=== PATIENT | male | born 1955 | race Caucasian/White ===

== ENCOUNTER 2017-07-24 06:38 | Day surgery (SDC) | payer MEDICARE ==
--- NOTE | 2017-06-26 07:01 | HP ---
HISTORY AND PHYSICAL: DATE OF SURGERY: 07/24/17 DATE OF H AND P: 06/25/17 SURGEON: Dr. Deya Noel.* (DICTATED BY MILENA SAMSON) PROCEDURE: Right index finger incision and drainage, removal of foreign body. CHIEF COMPLAINT: Foreign body in right index finger. HISTORY OF PRESENT ILLNESS: Gil Rdz is a very pleasant 61-year-old male referred by Dr. Middleton for triggering of his left middle finger. He also complains of a palpable mass in the dorsal aspect of his right index finger that has been present for many years. He wants an MRI of his knee and he noted pain in his finger and he had an x-ray that showed a metallic foreign body in his right index finger. He would like to have this removed as he is concerned with the need to have MRIs in the future as he has a history of throat cancer. He denies any history of problems with anesthesia in the past. He also denies any history of DVT or PE. PAST MEDICAL HISTORY: Includes throat cancer in 2012, spontaneous pneumothorax most recently in 2013, migraines, GERD, hypertension, dyslipidemia, hypothyroidism, and brachial plexopathy. PAST SURGICAL HISTORY: Mass removal from neck, bilateral total knee arthroplasty, bilateral carpal tunnel release, pleurodesis, tonsillectomy, port placement. MEDICATIONS: 1. Montelukast 10 mg. 2. Topiramate 100 mg. 3. Omeprazole 40 mg. 4. Pentoxifylline ER 400 mg. 5. Vitamin D daily. 6. Naproxen 220 mg 1 to 2 times p.r.n. 7. Amitriptyline 20 mg at bedtime. 8. Lisinopril 20 mg. 9. Atorvastatin 40 mg. 10. Baby aspirin daily. 11. Levothyroxine 50 mcg. 12. Loratadine. 13. Fiber. 14. Multivitamin. 15. PreserVision AREDS. 16. Biotene mouthwash twice daily. ALLERGIES: No known drug allergies. He does have sensitivity to adhesives. FAMILY MEDICAL HISTORY: Father with dementia and mother with hypertension and history of sepsis. SOCIAL HISTORY: He denies any tobacco use. He does rarely drink alcohol and he denies any illicit drug use, marijuana or otherwise. He also endorses regular exercise. 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 REVIEW OF SYSTEMS: Positive for blurring, double vision, cough, has chronic weakness, history of fracture, chronic neck pain, fatigue, seasonal allergies, hay fever, history of thyroid disease, headaches, numbness and tingling in the right side as well as his presenting complaint as outlined in the HPI. He denies any history of problems with anesthesia or DVT or PE. He denies any history of infection with MRSA, hepatitis C or HIV. PHYSICAL EXAMINATION GENERAL: He is a well-nourished, well-developed 61-year-old male, in no acute distress. Alert and oriented. He has gross weakness of his right upper extremity. He is ambulating without a limp. VITAL SIGNS: Height 70 inches, pulse 88, blood pressure 138/88, respirations 16 , temperature 98.2. Pain level 2. HEENT: Normocephalic, atraumatic. Pupils are equally round and reactive to light and accommodation. Extraocular movements are intact. NECK: He has some palpable banding on the right side as well as a scar at a similar area. He has no palpable cervical lymph nodes. His thyroid is smooth and nontender. PULMONARY: Lungs clear to auscultation bilaterally with no wheezes, rales, or rhonchi. CARDIAC: Regular rate and rhythm with no murmurs, rubs, or gallops. No pedal edema. 2+ radial pulses bilaterally. EXTREMITIES: In his right index finger, he has an easily palpable metallic foreign body on the dorsal aspect between the PIP and DIP joints. It is tender to palpation. He has full range of motion with flexion and extension of his fingers. His skin is intact. He has 2+ radial pulse. He has decreased sensation grossly at the right hand. Left middle finger has tenderness to palpation at the A1 tran. Flexes his finger, click and locks and he lacks a bit of extension. IMPRESSION: Foreign body in the right index finger as well as left middle finger trigger finger. PLAN: Gil Rdz is scheduled to undergo right index finger incision and drainage, removal of foreign body with Dr. Deya Noel on 07/24/17. He will return to clinic in about 7 to 10 days postop for followup and suture removal. Prescription for pain management will be prescribed to the patient's pharmacy of choice on the day of operation. All questions were answered today in clinic. MILENA SAMSON [id number]/[facility] #: [id number] GIANFRANCO
[2017-07-24] MEDS ORDERED: Lidocaine 1% INJ* 10 MG/ML 30 ML SDV ONE (06:56)
[2017-07-24 07:54] VITALS: BP 123/85
--- NOTE | 2017-07-24 09:33 | OP ---
DATE OF OPERATION: 07/24/17 [facility] DATE OF : 59 SURGEON: Deya Noel MD. DIRECTOR BUSINESS INTEGRATION: MILENA Lott. ANESTHESIA: Local. PRE-OP DIAGNOSIS: Foreign body in the right index finger. POST-OP DIAGNOSIS: Foreign body in the right index finger OPERATIVE PROCEDURE: Remove foreign body, right index finger. ESTIMATED BLOOD LOSS: Zero. TOURNIQUET TIME: Five minutes. INDICATIONS FOR PROCEDURE: Gil is a 61-year-old man who has a bothersome foreign body in the dorsal aspect of his right index finger. He presents for removal. DESCRIPTION OF PROCEDURE: The patient was brought to the operating room, was given a digital block anesthetic with 10 mL of 1% of plain lidocaine. The skin of his right hand and wrist was prepped and draped in the usual sterile fashion. Tourniquet was used on the finger to exsanguinate and then a longitudinal incision was made over the palpable foreign body. The foreign body was removed easily and sent for pathology. The wound was irrigated and the skin edges were reapproximated with 4-0 nylon suture. The wound was dressed with Xeroform, 4x4, Webril, and Coban. The patient tolerated the procedure well and was brought to the recovery room in good condition. [id number]/[facility] #: [id number] MTDPravin
== END 2017-07-24 07:46 | disposition home or self-care (01) ==
LOC: OREAST 06:38
PROVIDERS: ATTEND Orthopaedic Surgery
DX: M79.5 Residual foreign body in soft tissue (principal); I10 Essential (primary) hypertension; E78.5 Hyperlipidemia, unspecified; E03.9 Hypothyroidism, unspecified; Z85.819 Personal history of malignant neoplasm of unspecified site of lip, oral cavity, and pharynx; K21.9 Gastro-esophageal reflux disease without esophagitis
CPT/HCPCS: 88300

== ENCOUNTER 2019-02-01 16:28 | Emergency (ER) | payer MEDICARE ==
--- OUTSIDE RECORDS SUMMARY | 2019-02-01 16:35 | XMS REPORT | Continuity of Care Document ---
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/2019 Migraine Zelalem Middleton MD Onset: 01/17/2019 Gastroesophageal reflux disease Zelalem Middleton MD Onset: 01/17/2019 Inactive Problems Abnormal weight loss Onset: 07/29/2018 Inactive: 07/29/2018 Costal chondritis Onset: 07/29/2018 Inactive: 07/29/2018 Social History Type Date Description Comments Sex Unknown Allergies, Adverse Reactions, Alerts Active Allergies Reaction Severity Comments Date Lyrica Depression, didn't work Moderate 12/13/2018 Medications Active Medications SIG Qnty Indications Ordering Date Provider Levothyroxine Sodium Take 1 Tablet By 90tabs Zelalem Middleton MD 10/09/2018 100mcg Mouth Every Day Tablets Lisinopril Oral; Take 1 90tabs Unknown 08/05/2018 20mg Tablets Tablet By Mouth Daily Omeprazole Oral; Take 1 90caps Unknown 06/24/[address] Capsule By Mouth Every Day Atorvastatin Calcium Oral; Take 1 90tabs Unknown 06/11/2018 40mg Tablet By Mouth Tablets Every Day Montelukast Sodium Oral; Take 1 90tabs Unknown 06/11/2018 10mg Tablet By Mouth Tablets Every Day Topiramate Oral; Take 1 90tabs Unknown 04/11/2017 100mg Tablets Tablet By Mouth Every Day Loratadine 1 daily Oral 30tabs Unknown 01/04/2017 10mg Tablets Multi-Vitamins 1 daily Oral 30tabs Unknown 01/04/2017 Tablets Aspirin Ec 1 daily Oral 30tabs Unknown 08/17/2014 81mg Tablets Pentoxifylline ER one tid Unknown 400mg Tablets ER History Medications Levothyroxine Sodium Oral; Take 1 Tablet 90tabs Unknown 10/09/2018 - 03/2019 100mcg By Mouth Every Day Tablets Immunizations CPT Code Status Date Vaccine Lot # [id number] Given 12/17/2018 Influenza Virus Vaccine, Quadrivalent, Split, Im Use 0.25ML 87501 Given 12/27/2017 Influenza Virus Vaccine, Quadrivalent, Split, Im Use 0.25ML 64488 Given 12/27/2017 Influenza Virus Vaccine, Quadrivalent, Split, Im Use 0.25ML 01236 Given 12/27/2017 Influenza Virus Vaccine, Quadrivalent, Split, Im Use 0.25ML 39740 Given 12/27/2017 Flu < 65 years 53069 Given 12/27/2017 Influenza Virus Vaccine, Quadrivalent, Split, Preservative Free 65120 Given 12/27/2017 Flumist 72758 Given 12/27/2017 Flu High Dose 45792 Given 12/27/2017 Influenza Virus Vaccine, Split, Preserv Free, Intradermal Use 29795 Given 12/05/2016 Influenza Virus Vaccine, Split, Preserv Free, Intradermal Use 71143 Given 12/05/2016 Flu High Dose 81122 Given 12/05/2016 Flumist 96195 Given 12/05/2016 Influenza Virus Vaccine, Quadrivalent, Split, Preservative Free 59320 Given 12/05/2016 Flu < 65 years 97776 Given 12/05/2016 Influenza Virus Vaccine, Quadrivalent, Split, Im Use 0.25ML 95481 Given 12/05/2016 Influenza Virus Vaccine, Quadrivalent, Split, Im Use 0.25ML 78466 Given 12/05/2016 Influenza Virus Vaccine, Quadrivalent, Split, Im Use 0.25ML 40645 Given 11/26/2015 Influenza Virus Vaccine, Quadrivalent, Split, Im Use 0.25ML 57197 Given 11/26/2015 Influenza Virus Vaccine, Quadrivalent, Split, Im Use 0.25ML 14084 Given 11/26/2015 Influenza Virus Vaccine, Quadrivalent, Split, Im Use 0.25ML 92937 Given 11/26/2015 Flu < 65 years 05792 Given 11/26/2015 Influenza Virus Vaccine, Quadrivalent, Split, Preservative Free 03537 Given 11/26/2015 Flumist 56694 Given 11/26/2015 Flu High Dose 62506 Given 11/11/2014 Flu High Dose 32573 Given 11/11/2014 Flumist 00883 Given 11/11/2014 Influenza Virus Vaccine, Quadrivalent, Split, Preservative Free 22244 Given 11/11/2014 Flu < 65 years 24746 Given 11/11/2014 Influenza Virus Vaccine, Quadrivalent, Split, Im Use 0.25ML 03756 Given 11/11/2014 Influenza Virus Vaccine, Quadrivalent, Split, Im Use 0.25ML 26110 Given 11/11/2014 Influenza Virus Vaccine, Quadrivalent, Split, Im Use 0.25ML 10043 Given 12/21/2013 Influenza Virus Vaccine, Quadrivalent, Split, Im Use 0.25ML 56386 Given 12/21/2013 Influenza Virus Vaccine, Quadrivalent, Split, Im Use 0.25ML 89760 Given 12/21/2013 Influenza Virus Vaccine, Quadrivalent, Split, Im Use 0.25ML 94283 Given 12/21/2013 Flu < 65 years 94197 Given 12/21/2013 Influenza Virus Vaccine, Quadrivalent, Split, Preservative Free 67254 Given 12/21/2013 Flumist 47794 Given 12/21/2013 Flu High Dose 73629 Given 01/14/2013 Flu High Dose 82993 Given 01/14/2013 Flumist 81483 Given 01/14/2013 Influenza Virus Vaccine, Quadrivalent, Split, Preservative Free 27571 Given 01/14/2013 Flu < 65 years 05310 Given 01/14/2013 Influenza Virus Vaccine, Quadrivalent, Split, Im Use 0.25ML 39128 Given 01/14/2013 Influenza Virus Vaccine, Quadrivalent, Split, Im Use 0.25ML 22286 Given 01/14/2013 Influenza Virus Vaccine, Quadrivalent, Split, Im Use 0.25ML 61504 Given 02/08/2012 Flu High Dose 44868 Given 02/08/2012 Flumist 64146 Given 02/08/2012 Influenza Virus Vaccine, Quadrivalent, Split, Preservative Free 65418 Given 02/08/2012 Flu < 65 years 38927 Given 02/08/2012 Influenza Virus Vaccine, Quadrivalent, Split, Im Use 0.25ML 47297 Given 02/08/2012 Influenza Virus Vaccine, Quadrivalent, Split, Im Use 0.25ML 11399 Given 02/08/2012 Influenza Virus Vaccine, Quadrivalent, Split, Im Use 0.25ML 00124 Given 03/21/2011 Tdap - Boostrix/Adacel 17910 Given 01/07/2011 Influenza Virus Vaccine, Quadrivalent, Split, Im Use 0.25ML 22776 Given 01/07/2011 Influenza Virus Vaccine, Quadrivalent, Split, Im Use 0.25ML 68723 Given 01/07/2011 Influenza Virus Vaccine, Quadrivalent, Split, Im Use 0.25ML 40636 Given 01/07/2011 Flu < 65 years 15615 Given 01/07/2011 Influenza Virus Vaccine, Quadrivalent, Split, Preservative Free 71253 Given 01/07/2011 Flumist 49512 Given 01/07/2011 Flu High Dose 70023 Given 04/09/2008 Pneumovax - for >=2years - PPSV23 Vital Signs Date Vital Result Comment 01/17/2019 1:52pm BP Systolic 122 mmHg BP Diastolic 78 mmHg Weight 155.00 lb Heart Rate 82 /min Body Temperature 99.3 F O2 % BldC Oximetry 99 % 07/29/2018 11:27am BP Systolic 126 mmHg Height 69.00 inches 5'9.00" Weight 154.00 lb Heart Rate 92 /min Body Temperature 98.2 F O2 % BldC Oximetry 97 % BMI (Body Mass Index) 22.74 kg/m2 Results Test Date Facility Test Result H/L Range Note TSH 10/17/2018 N2N/CCD Import TSH 2.01 0.34-5.60 mcIU/mL mcIU/mL Sodium 10/17/2018 N2N/CCD Import Sodium 134 mmol/L Low 135-145 mmol/L Protein, Total 10/17/2018 N2N/CCD Import Protein, Total 5.8 g/dL Low 6.4- 8.9 g/dL Potassium 10/17/2018 N2N/CCD Import Potassium 4.3 mmol/L 3.5-5.0 mmol/L Glucose 10/17/2018 N2N/CCD Import Glucose 101 mg/dL High 70-100 mg/dL Globulin 10/17/2018 N2N/CCD Import Globulin 1.6 g/dL Low 2-4 g/dL GFR Non Afr Amer 10/17/2018 N2N/CCD Import GFR Non Afr 71.0 _ >60 Amer GFR Afr Amer 10/17/2018 N2N/CCD Import GFR Afr Amer 85.9 _ >60 Creatinine 10/17/2018 N2N/CCD Import Creatinine 1.06 mg/dL 0.67-1.17 mg/dL Co2 10/17/2018 N2N/CCD Import Co2 25 mmol/L 22-32 mmol/L Chloride 10/17/2018 N2N/CCD Import Chloride 104 mmol/L 101-111 mmol/L Calcium 10/17/2018 N2N/CCD Import Calcium 9.3 mg/dL 8.6-10.3 mg/dL BUN/Creat Ratio 10/17/2018 N2N/CCD Import BUN/Creat Ratio 17.0 _ 8-20 BUN 10/17/2018 N2N/CCD Import BUN 18 mg/dL 6-24 mg/dL Bilirubin Total 10/17/2018 N2N/CCD Import Bilirubin Total 0.40 mg/dL 0.2 -1.0 mg/dL Ast 10/17/2018 N2N/CCD Import Ast 21 U/L 13-39 U/L Anion Gap 10/17/2018 N2N/CCD Import Anion Gap 5 mmol/L 2-11 mmol/L Alt 10/17/2018 N2N/CCD Import Alt 24 U/L 7-52 U/L Alk Phos 10/17/2018 N2N/CCD Import Alk Phos 49 U/L 34-104 U/L Albumin 10/17/2018 N2N/CCD Import Albumin 4.2 g/dL 3.2-5.2 g/dL A/G Ratio 10/17/2018 N2N/CCD Import A/G Ratio 2.6 _ 1-3 Procedures Date Code Description Status 01/17/2019 74637 Brief Emotional/Behav Assessment W/ Scoring Doc Per Completed Standard Inst Medical Devices Description No Information Available Encounters Type Date Location Provider Dx Diagnosis Office Visit 01/17/2019 2:00p [facility] Zelalem Middleton MD I10 Essential ( primary) hypertension K21.9 Gastro-esophageal reflux disease without esophagitis Assessments Date Code Description Provider 01/17/2019 I10 Essential (primary) hypertension Zelalem Middleton MD 01/17/2019 K21.9 Gastro-esophageal reflux disease without esophagitis Zelalem Middleton MD Plan of Treatment Future Appointment(s):07/25/2019 2:00 pm - Zelalem Middleton MD at [facility] Main2018 - Zelalem Middleton MDI10 Essential (primary) iziomgyzgotnH56.9 Gastro- esophageal reflux disease without esophagitis Functional Status Description No Information Available Mental Status Description No Information Available Referrals Description No Information Available
--- OUTSIDE RECORDS SUMMARY | 2019-02-01 16:35 | XMS REPORT | Continuity of Care Document ---
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 [phone] Problems Active Problems Provider Date Screening for malignant neoplasm of Diana Philippe PA-C Onset: 2017 colon Epigastric pain Diana Philippe PA-C Onset: 10/22/2017 Gastroesophageal reflux disease Diana Philippe PA-C Onset: 10/22/2017 Social History Type Date Description Comments Sex Unknown ETOH Use Currently consumes alcohol 16 oz/week Tobacco Use Start: Unknown Patient has never smoked Smoking Status Reviewed: 12/02/18 Patient has never smoked Allergies, Adverse Reactions, Alerts Description No Known Drug Allergies Medications Active Medications SIG Qnty Indications Ordering Date Provider Suprep Bowel Prep Kit as directed 1units Guille Reyes DO 12/03/2018 17.5-3.13-1.6GM/177ML Solution Omeprazole 1 by mouth twice 30caps Marisol Mcguire, 40mg Capsules DR a day 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 Topiramate Daily Unknown 100mg Tablets Methylphenidate HCL 1 Tablet Daily Unknown 20mg Tablets Montelukast Sodium Daily Unknown 10mg Tablets Lisinopril Yadiel Middleton MD 20mg Tablets Pentoxifylline ER Take 1 Tablet By Unknown 400mg Mouth Three Tablets ER Times Daily Atorvastatin Calcium Yadiel Middleton MD 40mg Tablets Levothyroxine Sodium Take 1 Tablet By Unknown 100mcg Mouth Every Day Tablets Aspirin 1 by mouth every Unknown 81mg Tablets DR day Fiber 2 Tabs bid Unknown Preservision Areds Unknown Levocetirizine Unknown Dihydrochloride 5mg Tablets Immunizations Description No Information Available Vital Signs Date Vital Result Comment 12/02/2018 2:48pm Height 70 inches 5'10" Weight 155.00 lb BP Systolic 125 mmHg BP Diastolic 92 mmHg Heart Rate 89 /min BMI (Body Mass Index) 22.2 kg/m2 10/22/2017 1:13pm Height 70 inches 5'10" Weight 170.00 lb BP Systolic 144 mmHg BP Diastolic 92 mmHg Heart Rate 88 /min BMI (Body Mass Index) 24.4 kg/m2 Results Description No Information Available Procedures Description No Information Available Medical Devices Description No Information Available Encounters Description No Information Available Assessments Date Code Description Provider 12/02/2018 Z12.11 Encounter for screening for malignant neoplasm of Guille Reyes DO colon 12/02/2018 K21.9 Gastro-esophageal reflux disease without Guille Reyes DO esophagitis Plan of Treatment Future Appointment(s):02/21/2019 9:45 am - Guille Reyes DO at [facility]12/02/2018 - Guille Reyes DOZ12.11 Encounter for screening for malignant neoplasm of bnclwV51.9 Gastro-esophageal reflux disease without esophagitis Functional Status Description No Information Available Mental Status Description No Information Available Referrals Description No Information Available
[2019-02-01 17:03] VITALS: BP 126/86
--- NOTE | 2019-02-01 17:37 | UC ---
Laceration HPI - HPI Summary HPI Summary: Patient is a 63-year-old male presenting with after he cut the tip of his right thumb while slicing meat around 1500. States it bled immediately and did not stop for over an hour. Patient notes numbness but states this is chronic from brachial nerve plexus damage. Denies taking blood thinner. States he is not UTD on tetanus and would like a booster today. - History Of Current Complaint Chief Complaint: UCLaceration Stated Complaint: FINGER LACERATION Hx Obtained From: Patient Pain Intensity: 0 - Allergies/Home Medications Allergies/Adverse Reactions: Allergies Allergy/AdvReac Type Severity Reaction Status Date / Time Adhesive Tape [Plastic Tape] Allergy Rash And Verified 11/28/17 10:05 Itching PLASTIC BAND AID Allergy Rash Uncoded 11/28/17 10:05 Home Medications: Home Medications Cbd Oil 10 mg PO DAILY 02/01/19 [History Confirmed 02/01/19] Vitamin E 100 unit PO DAILY 02/01/19 [History Confirmed 02/01/19] PMH/Surg Hx/FS Hx/Imm Hx - Surgical History Surgical History: Yes Surgery Procedure, Year, and Place: 1989 LEFT carpal tunnel [place]. 2002 rt carpal tunnel [facility]. 2003 +5 AVILA TOTAL KNEES [facility] - AVILA REPLACEMENT. 2010 RT BRANCHIAL CLEFT CYST [facility]. 2012 RT NECK DISSECTION [facility]. 2012 RT TONSILECTOMY [facility] [place]. 09/2013 PLEURODESIS,[facility] - PARTIAL RESECTION OF LUNG - W/ TITANIUM CUONG. POWER PORT AND THEN REMOVED PRESENTLY. 2012 FEEDING TUBE PUT IN AND REMOVED 04/01/13. dental extraction 2015 - Family History Known Family History: Positive: Non-Contributory - Social History Alcohol Use: Weekly Alcohol Amount: 2 DRINKS A WEEK Substance Use Type: None Substance Use Comment - Amount & Last Used: N Smoking Status (MU): Never Smoked Tobacco - Immunization History Most Recent Influenza Vaccination: fall 2012 Most Recent Tetanus Shot: 2003 Most Recent Pneumonia Vaccination: 2007 Review of Systems All Other Systems Reviewed And Are Negative: No Constitutional: Positive: Negative Skin: Positive: Other Respiratory: Positive: Negative Cardiovascular: Positive: Negative Gastrointestinal: Positive: Negative. Negative: Vomiting, Nausea Neurovascular: Negative: Decreased Pulses Musculoskeletal: Negative: Arthralgia, Decreased ROM, Edema Neurological: Positive: Numbness Physical Exam Triage Information Reviewed: Yes Appearance: Well-Appearing, No Pain Distress, Well-Nourished Vital Signs: Initial Vital Signs Temp 98.8 F 02/01/19 16:58 Pulse 88 02/01/19 16:58 Resp 16 02/01/19 16:58 BP 126/86 02/01/19 16:58 Pulse Ox 99 02/01/19 16:58 Vital Signs Reviewed: Yes Eyes: Positive: Conjunctiva Clear ENT: Positive: Hearing grossly normal Neck: Positive: Supple Respiratory: Positive: No respiratory distress Cardiovascular: Positive: Pulses Normal - strong radial pulses bilaterally, Brisk Capillary Refill Musculoskeletal Exam: Normal Musculoskeletal: Positive: Strength Intact, ROM Intact, No Edema Neurological: Positive: Alert Psychological: Positive: Age Appropriate Behavior Skin: Positive: Other - 1cm wide superficial avulsion of distal phalanx of R thumb involving nail. no active bleeding. Laceration Course/Dx - Course/Dx Course Of Treatment: I treated the avulsion with glue. Patient also received booster for tetanus. Instructed patient to return or go to ED if he experiences s/s of infection or excessive bleeding. Patient voiced understanding and agreed with the treatment plan. - Diagnosis Provider Diagnosis: Avulsion of skin of right thumb without complication Discharge ED - Sign-Out/Discharge Documenting (check all that apply): Patient Departure All imaging exams completed and their final reports reviewed: No Studies - Discharge Plan Condition: Stable Disposition: HOME Patient Education Materials: Diphtheria/Acellular Pertussis/Tetanus Booster Vaccine (By injection), Skin Avulsion (ED) Referrals: Yadiel Middleton MD [Primary Care Provider] - If Needed Additional Instructions: As discussed, you have a superficial skin avulsion of your thumb that was treated with skin glue. The glue will fall off on its own within a week. The skin will heal and your nail will grow out normally. Return or go to the ED if you experience excessive bleeding, redness and warmth of the thumb, drainage, severe pain, or inability to move the thumb. - Billing Disposition and Condition Condition: STABLE Disposition: Home - Attestation Statements Provider Attestation: Per institutional requirements, I have reviewed the chart, however, I was not consulted specifically or made aware of this patient by the midlevel provider. I did not personally evaluate, interact with , or disposition this patient.
[2019-02-01] MEDS ORDERED: Tetan/Diph/Pertus SYR(Tdap)* 0.5 ML SYR(BOOSTRIX) use SYR contains LATEX IM ONE (17:42)
== END 2019-02-01 18:18 | disposition home or self-care (01) ==
LOC: UCEAST 16:28
DX: S61.001A Unspecified open wound of right thumb without damage to nail, initial encounter (principal); Z91.09 Other allergy status, other than to drugs and biological substances; W26.9XXA Contact with unspecified sharp object(s), initial encounter; Y92.9 Unspecified place or not applicable
CPT/HCPCS: 12001; 90471; 90715; 99212; G0463

== ENCOUNTER → 2019-02-21 06:37 | Day surgery (SDC) | payer MEDICARE ==
[~2019-02-21 06:37] MED LIST: Buffered Lidocaine 1% SYRIN* 1 ML/SYRINGE INTRADERM ONE; EPHEDrine (Pressors)* 50 MG/ML VIAL ONE; Lactated Ringers 1000 ML Bag* 1,000 ML IV SCH; Lidocaine 2% PF * 5 ML VIAL ONE; Midazolam* 1 MG/ML 5 ML VIAL (5 MG) ONE; Phenylephrine 40 MCG/ML SYRINGE ONE; Propofol* 10 MG/ML 20 ML BTL ONE
[2019-02-21 11:06] VITALS: BP 102/72
--- NOTE | 2019-02-21 12:52 | PRO ---
CC: Dr. Yadiel Middleton * DATE OF PROCEDURE: 02/21/2019. INDICATION FOR PROCEDURE: History of colon polyps. PROCEDURE PERFORMED: Complete colonoscopy to the cecum with biopsy polypectomy times three. MEDICATIONS GIVEN: Please see anesthesia record. DESCRIPTION OF PROCEDURE: After the colonoscopy procedure, including the risks , benefits, and alternatives, with the risks not limited to perforation, surgery , missed lesions, and/or were explained to the patient, written informed consent was obtained. IV medication was given and a rectal exam was performed. The rectal exam was unremarkable. The adult Olympus colonoscope was then inserted into the patient's rectum and advanced very carefully through the entirety of the colon and into the cecal base. The colon was quite tortuous, but with nursing assistance with pressure, I was able to intubate the cecum with ease. Quality of the preparation was good. The terminal ileal valve was identified and normal in appearance. A photograph was taken of the cecal cap. Over the next 12 minutes, the scope was carefully withdrawn inspecting the mucosa. Three polyps were removed in the transverse, ascending, and descending colon respectively with biopsy polypectomy in entirety. On further withdraw to the rectum, direct views were normal. On retroflexion, grade one internal hemorrhoids were appreciated. The scope was then removed from the patient. He tolerated the procedure well. He returned to the recovery room in stable condition. IMPRESSION: 1. Complete colonoscopy to the cecum. 2. Biopsy polypectomy times three. 3. Good prep. 4. Tortuous colon. 5. Grade one internal hemorrhoids. RECOMMENDATIONS: Repeat colonoscopy in three to five years pending pathology. [id number] #: [id number] GIANFRANCO
== END | disposition home or self-care (01) ==
LOC: OR 06:37
PROVIDERS: ATTEND Internal Medicine Gastroenterology
DX: K63.5 Polyp of colon (principal); K64.0 First degree hemorrhoids
CPT/HCPCS: 88305; J2250; J2704